=== PATIENT | female | born 1990 | race Two or more races ===

== ENCOUNTER 2022-04-07 16:09 | Emergency (ER) | payer OTHER ==
[~2022-04-07] VITALS: Ht 160 cm; Wt 61.2 kg
[2022-04-07 17:28] VITALS: BP 113/70
== END 2022-04-07 17:58 | disposition home or self-care (01) ==
LOC: ER 16:09
DX: S90.111A Contusion of right great toe without damage to nail, initial encounter (principal); W18.39XA Other fall on same level, initial encounter; Y93.89 Activity, other specified; Y92.89 Other specified places as the place of occurrence of the external cause; Y99.8 Other external cause status
CPT/HCPCS: 73630